=== PATIENT | female | born 1995 | race Hispanic/Latino ===

== ENCOUNTER 2016-09-24 21:12 | Emergency (ER) | payer OTHER ==
[~2016-09-24] VITALS: Ht 157.5 cm; Wt 62.6 kg
[~2016-09-24 21:12] MED LIST: HAIR, SKIN & N1 EACH PO; MECLIZINE HCL12.5 M1 PO; PREDNISONE10 M2 PO; flexeril PO
[2016-09-24 22:24] LABS: ABSOLUTE BASOPHIL COUNT 0.1 /CUMM (0.0-0.2); ABSOLUTE EOSINOPHIL COUNT 0.2 /CUMM (0.0-0.7); ABSOLUTE GRANULOCYTE CT 4.7 /CUMM (1.4-6.5); ABSOLUTE LYMPH COUNT 2.3 /CUMM (1.2-3.4); ABSOLUTE MONOCYTE COUNT 0.6 /CUMM (0.10-0.60); BASOPHIL % 0.7 % (0.0-2.0); EOSINOPHIL % 2.4 % (0-5); GRANULOCYTE % 60.3 % (42.2-75.2); HEMATOCRIT 37.9 % (37-47); MEAN CORPUSCULAR HGB 29.5 PG (27.0-31.0); MEAN CORPUSCULAR HGB CONC 33.7 G/DL (33.0-37.0); MEAN CORPUSCULAR VOLUME 87.5 FL (81.0-99.0); MEAN PLATELET VOLUME 9.4 FL (7.4-10.4); PLATELET COUNT 273 /CUMM (130-400); RBC DISTRIBUTION WIDTH 12.9 % (11.5-14.5); RED BLOOD CELL CT 4.33 /CUMM (4.20-5.40); WHITE BLOOD CELL COUNT 7.8 /CUMM (4.8-10.8)
--- NOTE | 2016-09-24 22:43 | ED GI/GU/ABDOMINAL COMPLAINT ---
History of Present Illness General Chief Complaint: Abdominal Pain/Flank Pain Stated Complaint: ABD PAIN Source: patient Exam Limitations: no limitations Vital Signs & Intake/Output Vital Signs & Intake/Output Vital Signs Date Time Temp Pulse Resp B/P Pulse O2 O2 Flow FiO2 Ox Delivery Rate 09/24 2331 98.6 83 18 119/56 98 Room Air 09/24 2230 100 Room Air 09/24 2229 97.7 76 18 119/68 100 Room Air ED Intake and Output 09/25 0000 09/24 1200 Intake Total Output Total Balance Patient 138 lb Weight Allergies Coded Allergies: amoxicillin (SWELLING 01/06/16) ceftriaxone (ANAPHYLAXIS 09/24/16) sumatriptan (From IMITREX) (INCREASED PRESSURE IN HEAD SEVERELY 01/06/16) tramadol (PANIC ATTACK 01/06/16) Reconcile Medications Albuterol Sulfate (Ventolin Hfa) 90 MCG HFA.AER.AD 2 PUF INH PRN ASTHMA ( Reported) Albuterol Sulfate 2.5 MG/3 ML (0.083 %) VIAL.NEB 1 Vial INH/EMELINA PRN ASTHMA ( Reported) Ergocalciferol (Vitamin D2) (Vitamin D2) 50,000 UNIT CAPSULE 1 CAP PO QTHURS SUPPLEMENT (Reported) Hydromorphone HCl (Dilaudid) 2 MG TABLET 1 TAB PO BIDP PRN pain Norgestimate-Ethinyl Estradiol (Tri-Sprintec Tablet) [id number] TABLET 1 TAB PO DAILY PCOS/ENDOMETRIOSIS (Reported) Oxycodone HCl/Acetaminophen (Oxycodone-Acetaminophen 5-325) 5 MG-325 MG TABLET 1-2 TAB PO Q4-6H PRN PAIN (Reported) Triage Note: PT TO ED FOR PELVIC PAIN, REPORTS SHE HAD LAPROSCOPIC PELVIC SURGERY FOR ENDOMETRIOSIS ON Sep "AND THE PAIN IS BACK AND THE PERCOCETS AREN'T WORKING" PT ALSO C/O MIGRAINE. REPORTING INTERMITTENT NAUSEA SINCE SURGERY WELL. DENIES ANY ABNORMAL VAG DISCHARGE/BLEEDING. Triage Nurses Notes Reviewed? yes ? n Is pt currently ? No Onset: Gradual Duration: week(s): (1) Timing: recent history Quality/Severity: aching Severity Numbers: 8 Location: suprapubic Radiation: no radiation Activities at Onset: none Prior Abdominal Problems: similar symptoms Past Sexual History: Unobtainable at this time No Modifying Factors: none HPI: Patient is a 21-year-old female presenting to the emergency department with chief complaint of lower abdominal pain is progressive and getting worse over the past 1 week. She was recently diagnosed with endometriosis and had laparoscopic surgery done on September 10. She felt fine for about a week and then pain started to come back. Denies any fevers or chills no nausea vomiting chest pain or shortness of breath. She reports that she was prescribed Percocet which have not been helping. She did not want to go back to the hospital where she had her surgery because she felt like she was treated poorly there. Palpation makes the pain worse nothing seems to make it better. (LISSY BURGOS) Past History Travel History Traveled to [place] past 21 day No Medical History Any Pertinent Medical History? 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 No (LISSY BURGOS) Review of Systems Review of Systems Constitutional: Reports: no symptoms. Comments Review of systems: See HPI, All other systems negative. Constitutional, no chills fever or weight loss HEENT: No visual changes no sore throat no congestion Cardiovascular: No chest pain Skin, no jaundice no rashes Respiratory: No dyspnea cough sputum or hemoptysis GI: No nausea no vomiting : No dysuria No hematuria Muscle skeletal: no back pain, no neck pain, Neurologic: No numbness no confusion Psych: No stress anxiety o Immunology: No splenectomy or history of AIDS (LISSY BURGOS) Physical Exam Physical Exam General Appearance: well developed/nourished, no apparent distress, alert, awake , comfortable Gastrointestinal: normal bowel sounds, soft, tenderness Comments: Well-developed well-nourished person in no acute distress HEENT: Pupils equally round and reactive to light and accommodation. Nose is atraumatic. Neck: Normal inspection Back: Nontender, no CVA tenderness. Full range of motion Cardiovascular: Regular rate and rhythms no murmurs rubs or gallops, normal JVP Respiratory: Chest nontender. No respiratory distress.breath sounds clear to auscultation bilaterally Abdomen: Soft, tenderness to palpation in the lower quadrants bilaterally, no rebound or guarding, nondistended, no appreciable organomegaly. Normal bowel sounds. No ascites surgical incision sites are well. No surrounding erythema or edema. No palpable masses. Extremity: No edema Neuro: Alert oriented x3 Skin: No appreciable rash on exposed skin, skin is warm and dry. Psych: Mood and affect is normal, memory and judgment is normal. Core Measures ACS in differential dx? No Severe Sepsis Present: No Septic Shock Present: No (LISSY BURGOS) Progress Differential Diagnosis: UTI/pyelo, chronic pain, endometriosis, intra-abdominal infection Plan of Care: Orders Procedure Date/time Status Add-on Test (ER Only) 09/24 2352 Active CULTURE,URINE 09/24 2207 Active URINALYSIS 09/24 2114 Complete LIPASE 09/24 2114 Complete HEPATIC FUNCTION PANEL 09/24 2114 Complete HUMAN BETA HCG SCREEN 09/24 2114 Complete CBC WITHOUT DIFFERENTIAL 09/24 2114 Complete BASIC METABOLIC PANEL 09/24 2114 Complete AMYLASE 09/24 2114 Complete Laboratory Tests 09/24/162207: Anion Gap 12, Estimated GFR > 60, BUN/Creatinine Ratio 15.0, Glucose 66, Calcium 9.6, Total Bilirubin 0.4, Direct Bilirubin 0.3, AST 15, ALT 15, Alkaline Phosphatase 48, Total Protein 7.8, Albumin 4.4, Amylase 74, Lipase 62, Total Beta HCG NEGATIVE, CBC w Diff NO MAN DIFF REQ, RBC 4.33, MCV 87.5, MCH 29.5, RDW 12.9, MPV 9.4, Gran % 60.3, Lymphocytes % 29.2, Monocytes % 7.4, Eosinophils % 2.4, Basophils % 0.7, Absolute Granulocytes 4.7, Absolute Lymphocytes 2.3, Absolute Monocytes 0.6, Absolute Eosinophils 0.2, Absolute Basophils 0.1, PUBS MCHC 33.7, Urine Color YEL, Urine Clarity HAZY H, Urine pH 6.0, Ur Specific Tiller >= 1.030, Urine Protein TRACE H, Urine Ketones TRACE H, Urine Nitrite NEG, Urine Bilirubin NEG, Urine Urobilinogen 0.2, Ur Leukocyte Esterase NEG, Ur Microscopic SEDIMENT EXAMINED, Urine RBC 1-3, Urine WBC 3-5 H, Ur Epithelial Cells MANY H, Urine Mucus PACKD H, Urine Hemoglobin TRACE-INTACT, Urine Glucose NEG Microbiology 09/24 2207 URINE ROUT: Urine Culture - RECD Initial ED EKG: none Comments: Patient given ODT Zofran and by mouth Dilaudid. Blood work was drawn and sent to the lab. Urinalysis obtained. Patient was informed of all lab work results. Urinalysis is a contaminated specimen. Urine culture sent. No elevation in white blood cell count. Patient is afebrile. Patient reports improvement after Dilaudid. Belly was soft on examination. Likely pain secondary to endometriosis. Patient will follow up with surgeon. Discussed with Dr. Wilkins and he agrees with plan. (LISSY BURGOS) Departure Departure Time of Disposition: 2350 Disposition: HOME OR SELF CARE Condition: Stable Clinical Impression Primary Impression: Endometriosis Referrals: DOE BRAUN (PCP/Family) Additional Instructions: Follow-up with your surgeon on Tuesday as scheduled. Take pain medication as prescribed. Apply warm compresses. Return for any fevers worsening symptoms or concerns. Departure Forms: Customer Survey General Discharge Information Prescriptions: Current Visit Scripts Hydromorphone HCl (Dilaudid) 1 TAB PO BIDP PRN pain #10 TAB (LISSY BURGOS) PA/ROVING TECHNICIAN Co-Sign Statement Statement: ED Attending supervision documentation- [] I saw and evaluated the patient. I have also reviewed all the pertinent lab results and diagnostic results. I agree with the findings and the plan of care as documented in the PA's/ROVING TECHNICIAN's documentation. [x] I have reviewed the ED Record and agree with the PA's/ROVING TECHNICIAN's documentation. [] Additions or exceptions (if any) to the PAs/ROVING TECHNICIAN's note and plan are summarized below: [] (IDALIA LYNNE,GIANNA Sabillon)
[2016-09-24] MEDS ORDERED: OXYCODONE-ACET1 EACH PO (22:56)
[2016-09-24] MEDS ORDERED: VITAMIN D250000 UNIT PO (22:57)
[2016-09-24] MEDS ORDERED: VENTOLIN HFA18 GM INH (22:59)
[2016-09-24] MEDS ORDERED: ALBUTEROL2.5 MG/3 M INH/SOL (22:59)
[2016-09-24] MEDS ORDERED: TRI-SPRINTEC T1 EACH PO (22:59)
[2016-09-24 23:31] VITALS: BP 119/56
[2016-09-24] MEDS ORDERED: DILAUDID2 M1 PO (23:51)
== END 2016-09-24 23:54 ==
LOC: ERH 21:12
PROVIDERS: Pediatrics
DX: N80.9 Endometriosis, unspecified (principal)
CPT/HCPCS: 81001; 87086; J3101

== ENCOUNTER 2016-11-23 16:32 | Emergency (ER) | payer OTHER ==
[~2016-11-23] VITALS: Ht 154.9 cm; Wt 65.3 kg
[~2016-11-23 16:32] MED LIST changes: +ALBUTEROL2.5 MG/3 M INH/SOL; +DILAUDID2 M1 PO; +OXYCODONE-ACET1 EACH PO; +TRI-SPRINTEC T1 EACH PO; +VENTOLIN HFA18 GM INH; +VITAMIN D250000 UNIT PO
--- NOTE | 2016-11-23 16:57 | ED DYSPNEA/ASTHMA COMPLAINT ---
History of Present Illness General Chief Complaint: Wheezing/Asthma Stated Complaint: ASTHMA ATTACK Source: patient Exam Limitations: no limitations Vital Signs & Intake/Output Vital Signs & Intake/Output Vital Signs Date Time Temp Pulse Resp B/P Pulse O2 O2 Flow FiO2 Ox Delivery Rate 11/23 1849 15 100 Room Air Room Air 11/23 1820 99 11/23 1818 100 Room Air Room Air 11/23 1751 97.0 11/23 1744 97.0 736 18 159/80 99 Room Air 11/23 1705 99 11/23 1642 98.8 97 20 123/81 98 Room Air ED Intake and Output 11/24 0000 11/23 1200 Intake Total 0 Output Total Balance 0 Intake, Oral 0 Patient 144 lb Weight Allergies Coded Allergies: amoxicillin (SWELLING 01/06/16) ceftriaxone (ANAPHYLAXIS 09/24/16) sumatriptan (From IMITREX) (INCREASED PRESSURE IN HEAD SEVERELY 01/06/16) tramadol (PANIC ATTACK 01/06/16) Reconcile Medications Albuterol Sulfate (Ventolin Hfa) 90 MCG HFA.AER.AD 2 PUF INH PRN ASTHMA ( Reported) Albuterol Sulfate 2.5 MG/3 ML (0.083 %) VIAL.NEB 1 Vial INH/EMELINA PRN ASTHMA ( Reported) Ascorbate Calcium (Vitamin C) (Unknown Strength) TABLET (Unknown Dose) PO DAILY SUPPLEMENT (Reported) Biotin (Meribin) (Unknown Strength) CAPSULE (Unknown Dose) PO DAILY SUPPLEMENT (Reported) Leuprolide Acetate (Lupron Depot) (Unknown Strength) SYRINGEKIT (Unknown Dose) INJ Q30D ENDOMETRIOSIS (Reported) Magnesium Oxide (Magnesium) (Unknown Strength) CAPSULE (Unknown Dose) PO DAILY SUPPLEMENT (Reported) Norethindrone (Aygestin) 5 MG TABLET 1 TAB PO DAILY CONTROL (Reported) Prednisone (Unknown Strength) TABLET (Unknown Dose) PO BID UNKNOWN (Reported) Pyridoxine HCl (Vitamin B-6) (Unknown Strength) TABLET (Unknown Dose) PO DAILY SUPPLEMENT (Reported) Triage Note: RECEIVED 21 YO FEMALE WITH HX OF ASTHMA C/O WHEEZING AND DIFFICULTY BREATHING STARTED THIS AM. PT SEEN AT [facility] TODAY, WAS GIVEN MED NEB TREATMENTS ONLY. INSP AND EXP WHEEZES NOTED. PT WITH DIFFICULTY SPEAKING Triage Nurses Notes Reviewed? yes Onset: Abrupt Duration: day(s): (1) Timing: multiple episodes today Severity: moderate Activities at Onset: none Associated Symptoms: cough, dyspnea, sore throat : No Patient currently breastfeeds: No HPI: 21 year old female with history of asthma who presents with sudden onset of shortness of breath this morning. She was seen at the urgent care and had 3 breathing treatments and then was sent here. She reports mild sore throat. Denies any sputum production. History of hospitalizations as a child for asthma but none in recent years. Triggers for her asthma are URI, change in weather, dander and dust. Denies chest pain. Past History Travel History Traveled to [place] past 21 day No Medical History Any Pertinent Medical History? 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 Yes Review of Systems Review of Systems Constitutional: Denies: chills, fever. EENTM: Reports: throat pain. Respiratory: Reports: cough, short of breath. Denies: sputum production. Cardiovascular: Denies: chest pain, palpitations. GI: Denies: abdominal pain, diarrhea, nausea, vomiting. Genitourinary: Denies: discharge, dysuria. Musculoskeletal: Reports: no symptoms. Skin: Reports: no symptoms. Neurological/Psychological: Reports: no symptoms. Hematologic/Endocrine: Denies: bruising, bleeding, polyuria, polydipsia. Immunologic/Allergic: Denies: splenectomy. All Other Systems: Reviewed and Negative Physical Exam Physical Exam General Appearance: well developed/nourished, alert, awake, anxious Head: atraumatic, normal appearance Eyes: Bilateral: normal appearance, PERRL, pale conjunctivae. Ears, Nose, Throat: pharyngeal erythema Neck: normal inspection, supple, full range of motion Respiratory: decreased breath sounds, wheezing, respiratory distress Cardiovascular: tachycardia Peripheral Pulses: 2+ radial (R), 2+ radial (L) Gastrointestinal: soft, non-tender Neurologic/Psych: awake, alert, oriented x 3 Skin: intact, normal color, warm/dry Core Measures ACS in differential dx? No Severe Sepsis Present: No Septic Shock Present: No Progress Differential Diagnosis: asthma, bronchitis, costochondritis, musculoskeletal pain, pulmonary embolism, pneumonia, pneumothorax Plan of Care: Orders Procedure Date/time Status EKG 11/23 175 Active THROAT CULTURE W/QUICK STREP 11/23 170 Active RT ED ORDERS 11/23 1656 Active patient feeling much better after 2 duoneb treatments, prednisone and ibuprofen. cxr is negative. strep is negative. Chest pain developed after first treament. EKG was normal. Currently chest pain is resolved. (MANISH LYNNE,JACKIE) Diagnostic Imaging: Viewed by Me: Radiology Read. Discussed w/RAD: Radiology Read. Initial ED EKG: NSR Comments: PATIENT: LEILANI EVANS PRESENT AGE: 21 PATIENT ACCOUNT NO: [id number] : 93 LOCATION: [facility] ORDERING PHYSICIAN: JACKIE HAMMOND MD SERVICE DATE: 11/23/16 EXAM TYPE: RAD - XRY-PORTABLE CHEST XRAY EXAMINATION: XR PORTABLE CHEST CLINICAL INFORMATION: Respiratory distress. Evaluate for pneumonia. COMPARISON: Chest radiograph 04/03/2016. TECHNIQUE: Portable AP upright view of the chest was obtained. FINDINGS: Lungs are clear and well expanded. There is no focal consolidative disease, pleural effusion, or pneumothorax. The cardiac silhouette is at upper limits of normal size which may represent a manifestation of AP portable technique. Upper mediastinal contours are normal. No acute osseous finding. IMPRESSION: The cardiac silhouette is at the upper limits of normal size with may represent a manifestation of AP portable technique. Otherwise normal examination. DICTATED BY: SHANTE WELCH MD DATE/TIME DICTATED:11/23/161741 VERIFIER:MEGHAN DATE/TIME TRANSCRIBED:11/23/161741 CONFIDENTIAL, DO NOT COPY WITHOUT APPROPRIATE AUTHORIZATION. <Electronically signed in Other Vendor System> SIGNED BY: SHANTE WELCH MD 11/23 Departure Departure Time of Disposition: 184 Disposition: HOME OR SELF CARE Condition: Stable Clinical Impression Primary Impression: Asthma exacerbation Referrals: DOE BRAUN (PCP/Family) Additional Instructions: Fill out your prescriptions for albuterol liquid as well as the prednisone. Follow up with her doctor in the office. Please return to the ER for any changing or worsening symptoms. Departure Forms: Customer Survey General Discharge Information Critical Care Note Critical Care Note Critical Care Time: non-applicable
[2016-11-23] MEDS ORDERED: PREDNISONE20 M1 PO (17:01)
[2016-11-23] MEDS ORDERED: AYGESTIN5 MG PO (17:03)
[2016-11-23] MEDS ORDERED: LUPRON DEPOT3.75 M1 INJ (17:04)
[2016-11-23] MEDS ORDERED: VITAMIN C500 M6 PO (17:05)
[2016-11-23] MEDS ORDERED: MERIBIN5 M1 PO (17:05)
[2016-11-23] MEDS ORDERED: VITAMIN B-6100 M1 PO (17:05)
[2016-11-23] MEDS ORDERED: MAGNESIUM400 M1 PO (17:06)
[2016-11-23 17:44] VITALS: BP 159/80
--- NOTE | 2016-11-23 17:48 | RADIOLOGY REPORT ---
EXAMINATION: XR PORTABLE CHEST CLINICAL INFORMATION: Respiratory distress. Evaluate for pneumonia. COMPARISON: Chest radiograph 04/03/2016. TECHNIQUE: Portable AP upright view of the chest was obtained. FINDINGS: Lungs are clear and well expanded. There is no focal consolidative disease, pleural effusion, or pneumothorax. The cardiac silhouette is at upper limits of normal size which may represent a manifestation of AP portable technique. Upper mediastinal contours are normal. No acute osseous finding. IMPRESSION: The cardiac silhouette is at the upper limits of normal size with may represent a manifestation of AP portable technique. Otherwise normal examination.
== END 2016-11-23 18:51 ==
LOC: ERH 16:32
DX: J45.901 Unspecified asthma with (acute) exacerbation (principal); R06.02 Shortness of breath; J02.9 Acute pharyngitis, unspecified
CPT/HCPCS: 1263; 1395; 93005; 93010

== ENCOUNTER 2017-03-06 08:04 | Emergency (ER) | payer OTHER ==
[~2017-03-06] VITALS: Ht 154.9 cm; Wt 68.0 kg
[~2017-03-06 08:04] MED LIST changes: +AYGESTIN5 MG PO; +LUPRON DEPOT3.75 M1 INJ; +MAGNESIUM400 M1 PO; +MERIBIN5 M1 PO; +PREDNISONE20 M1 PO; +VITAMIN B-6100 M1 PO; +VITAMIN C500 M6 PO
[2017-03-06 08:11] VITALS: BP 129/82
--- NOTE | 2017-03-06 09:29 | ED EAR COMPLAINT ---
History of Present Illness General Chief Complaint: Ear Complaints Stated Complaint: LFT EAR PAIN Source: patient Exam Limitations: no limitations Vital Signs & Intake/Output Vital Signs & Intake/Output Vital Signs Date Time Temp Pulse Resp B/P B/P Pulse O2 O2 Flow FiO2 Mean Ox Delivery Rate 03/06 0811 98.0 68 18 129/82 99 Room Air Allergies Coded Allergies: amoxicillin (SWELLING 01/06/16) ceftriaxone (ANAPHYLAXIS 09/24/16) sumatriptan (From IMITREX) (INCREASED PRESSURE IN HEAD SEVERELY 01/06/16) tramadol (PANIC ATTACK 01/06/16) Reconcile Medications Albuterol Sulfate (Ventolin Hfa) 90 MCG HFA.AER.AD 2 PUF INH PRN ASTHMA ( Reported) Albuterol Sulfate 2.5 MG/3 ML (0.083 %) VIAL.NEB 1 Vial INH/EMELINA PRN ASTHMA ( Reported) Ascorbate Calcium (Vitamin C) (Unknown Strength) TABLET (Unknown Dose) PO DAILY SUPPLEMENT (Reported) Azithromycin 250 MG TABLET 1 DP PO AD OTITIS MEDIA 2 the first day followed by 1 for days 2-5 Biotin (Meribin) (Unknown Strength) CAPSULE (Unknown Dose) PO DAILY SUPPLEMENT (Reported) Ciprofloxacin HCl/Dexameth (Ciprodex Otic Suspension) 0.3 %-0.1 % DROPS.SUSP 4 GTT OT BID OTITIS MEDIA Ibuprofen 400 MG TABLET 1 TAB PO Q6P PRN OTITIS MEDIA Leuprolide Acetate (Lupron Depot) (Unknown Strength) SYRINGEKIT (Unknown Dose) INJ Q30D ENDOMETRIOSIS (Reported) Magnesium Oxide (Magnesium) (Unknown Strength) CAPSULE (Unknown Dose) PO DAILY SUPPLEMENT (Reported) Norethindrone (Aygestin) 5 MG TABLET 1 TAB PO DAILY CONTROL (Reported) Prednisone (Unknown Strength) TABLET (Unknown Dose) PO BID UNKNOWN (Reported) Pyridoxine HCl (Vitamin B-6) (Unknown Strength) TABLET (Unknown Dose) PO DAILY SUPPLEMENT (Reported) Triage Note: PT TO ED FOR L EAR PAIN SINCE LAST NIGHT. Triage Nurses Notes Reviewed? yes : No Patient currently breastfeeds: No HPI: 21F PMH ASTHMA, ENDOMETRIOSIS PRESENTING WITH LEFT EAR PAIN OF ONE DAY. CAME ON GRADUALLY BUT PAIN IS NOW SEVERE 10/10. NO CHANGES IN HEARING. DENIES FEVER, CHILLS, HEADACHE, NECK STIFFNESS, ALTERED MENTAL STATUS, MENINGEAL SIGNS, N/V, CHEST PAIN, SOB, DIARRHEA, DYSURIA. NO HISTORY OF EAR INFECTIONS. DENIES TRAUMA TO THE EAR. NO DISCHARGE FROM THE EAR, DID NOT GO SWIMMING OR IN A HOT TUB. Past History Travel History Traveled to [place] past 21 day No Medical History Any Pertinent Medical History? 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 No Review of Systems Review of Systems Constitutional: Reports: no symptoms. EENTM: Reports: see HPI. Respiratory: Reports: no symptoms. Cardiovascular: Reports: no symptoms. GI: Reports: no symptoms. Genitourinary: Reports: no symptoms. Musculoskeletal: Reports: no symptoms. Skin: Reports: no symptoms. Neurological/Psychological: Reports: no symptoms. Hematologic/Endocrine: Reports: no symptoms. Immunologic/Allergic: Reports: no symptoms. All Other Systems: Reviewed and Negative Physical Exam Physical Exam General Appearance: well developed/nourished, mild distress Head: atraumatic Ears: Left: erythema, swelling, tenderness, Tympanic bulging. Right: canal normal, Tympanic normal. Nose: normal inspection Mouth/Throat: normal mouth inspection, pharynx normal Neck: normal inspection, supple, NO CERVICAL LYMPHADENOPATHY Cardiovascular/Respiratory: normal breath sounds, regular rate/rhythm Back: normal inspection Neurologic/Psych: awake, alert, oriented x 3, normal mood/affect Skin: intact, normal color, warm/dry Progress Differential Diagnoses I considered the following diagnoses in my evaluation of the patient: OTITIS MEDIA, OTITIS EXTERNA, FOREIGN BODY, TRAUMA, MENINGITIS, ENCEPHALITIS, OBSTRUCTED EUSTACHIAN TUBE, ACUTE PHARYNGITIS, MENIERE'S DISEASE, CVA Plan of Care: Current Medications Sig/Ailyn Start time Last Medication Dose Stop Time Status Admin Ibuprofen 800 MG ONCE ONE 03/06 930 UNVr (Motrin) 03/06 931 Initial ED EKG: none Departure Departure Time of Disposition: 939 Disposition: HOME OR SELF CARE Condition: Stable Clinical Impression Primary Impression: Acute otitis media Referrals: DOE BRAUN (PCP/Family) Additional Instructions: FOLLOW UP WITH YOUR DOCTOR THIS WEEK. RETURN TO ER IF YOU EXPERIENCE NECK STIFFNESS, FEVER, VISION CHANGES, CONFUSION, NAUSEA, VOMITING. Departure Forms: Customer Survey General Discharge Information Prescriptions: Current Visit Scripts Azithromycin 1 DP PO AD #6 TAB 2 the first day followed by 1 for days 2-5 Ciprofloxacin HCl/Dexameth (Ciprodex Otic Suspension) 4 GTT OT BID #1 BOT Ibuprofen 1 TAB PO Q6P PRN OTITIS MEDIA #20 TAB
[2017-03-06] MEDS ORDERED: IBUPROFEN400 M1 PO (09:43)
[2017-03-06] MEDS ORDERED: CIPRODEX OTIC7.5 ML OT (09:43)
[2017-03-06] MEDS ORDERED: AZITHROMYCIN250 M1 PO (09:43)
== END 2017-03-06 09:50 ==
LOC: ERH 08:04
DX: H66.92 Otitis media, unspecified, left ear (principal)